=== PATIENT | female | born 1965 | race Caucasian/White ===

== ENCOUNTER 2021-03-29 01:25 | Emergency (ER) | payer BC ==
[~2021-03-29] VITALS: Ht 152.4 cm; Wt 45.4 kg
[2021-03-29 01:50] VITALS: BP 120/66
--- NOTE | 2021-03-29 01:55 | NUR ---
PT BIBS C/O COUGH X3 DAYS. PT TOOK [employer]. PT AAOX4 BREATHING EVENLY AND UNLABORED. PT ATTACHED TO MONITOR AND POX. MD AT BEDSIDE. PT GIVEN BLANKET AND CALL LIGHT WITHIN REACH
== END 2021-03-29 03:15 | disposition home or self-care (01) ==
LOC: ER 01:31
DX: U07.1 COVID-19 (principal)
CPT/HCPCS: 99283; C9803; U0003